=== PATIENT | male | born 1955 | race Caucasian/White ===

== ENCOUNTER 2016-07-07 06:26 | Day surgery (SDC) | payer BC ==
[~2016-07-07] VITALS: Ht 180.3 cm; Wt 108.9 kg
[2016-07-07] MEDS ORDERED: POLYMYXIN 500,000/BACIT.10,000 UNITS in NS IRR 1 L IR ONE (08:35)
[2016-07-07 09:00] VITALS: O2SAT 97
[2016-07-07] MEDS ORDERED: WATER FOR IRRIGATION,STERILE 1,000 ML IRRIG.SOLN IR ONE (10:00)
[2016-07-07] MEDS ORDERED: LR 1,000 ML IV.SOLN IV ONE (10:00)
[2016-07-07] MEDS ORDERED: OXYMETAZOLINE HCL 0.05% NASAL SPRAY NS ONE (10:00)
[2016-07-07] MEDS ORDERED: BACITRACIN ZINC 15 GM TOPICAL OINTMENT TP ONE (10:00)
[2016-07-07] MEDS ORDERED: EPINEPHrine 1 MG/ML AMP ONE (10:00)
[2016-07-07] MEDS ORDERED: ONDANSETRON HCL 4 MG/2 ML VIAL ONE (10:00)
[2016-07-07] MEDS ORDERED: LIDOCAINE/EPI 1% 1:100000 20 ML VIAL INJ ONE (10:00)
[2016-07-07] MEDS ORDERED: PROPOFOL 200MG/ 20ML VIAL (DIPRIVAN) IV ONE (10:00)
[2016-07-07] MEDS ORDERED: NS 1000 ML BAG IV ONE (10:00)
[2016-07-07] MEDS ORDERED: NS IRRIG SOLN 1000 ML IR ONE (10:00)
[2016-07-07] MEDS ORDERED: ROCURONIUM BROMIDE 10 MG/ML (ZEMURON) ONE (10:00)
[2016-07-07] MEDS ORDERED: SEVOFLURANE 15 MIN GAS INH ONE (10:00)
[2016-07-07] MEDS ORDERED: ONDANSETRON HCL 4 MG/2 ML VIAL IVP PRN (10:15)
[2016-07-07] MEDS ORDERED: HYDROmorphone 1 MG INJ. 1 MG/ML AMPUL IVP PRN (10:15)
[2016-07-07 11:56] VITALS: BP 126/72; PULSE 84; RESP 16
== END 2016-07-07 13:25 | disposition home or self-care (01) ==
LOC: SDS 06:26 → SMU 06:26 → SDS 13:25
PROVIDERS: ATTEND Otolaryngology
DX: J32.8 Other chronic sinusitis (principal); J34.89 Other specified disorders of nose and nasal sinuses; E78.5 Hyperlipidemia, unspecified; I10 Essential (primary) hypertension
CPT/HCPCS: 31254; 31256; 31287; 87070; 87075; 87101; 87186; 88304; 88305; 88311; 93005; C1726; J7120; 88313; J0171; J2405; J2704; J7030